=== PATIENT | female | born 1960 | race Caucasian/White ===

== ENCOUNTER 2017-04-05 09:20 | Outpatient (CLI) | payer BC, OTHER ==
[2017-04-05 13:32] LABS: BASOPHILS # (AUTO) 0.1 10^3/uL (0.0-0.1); BASOPHILS % (AUTO) 1.3 %; EOSINOPHILS # (AUTO) 0.1 10^3/uL (0.0-0.7); EOSINOPHILS % (AUTO) 2.2 %; HCT - HEMATOCRIT 36.5 % (37.0-47.0); HGB - HEMOGLOBIN 12.4 g/dL (12.0-16.0); LYMPHOCYTES # (AUTO) 1.3 10^3/uL (1.5-3.5); LYMPHOCYTES % (AUTO) 27.2 %; MEAN CORPUSCULAR HEMOGLOBIN 28.8 pg (27.0-31.0); MEAN CORPUSCULAR VOLUME 84.7 fL (81.0-99.0); MEAN PLATELET VOLUME 8.6 fL (7.9-10.8); MONOCYTES # (AUTO) 0.5 10^3/uL (0.0-1.0); MONOCYTES % (AUTO) 9.6 %; NEUTROPHILS # (AUTO) 2.9 10^3/uL (1.5-6.6); NEUTROPHILS % (AUTO) 59.7 %; NUCLEATED RED BLOOD CELLS AUTO 0.1 /100WBC; RED BLOOD COUNT 4.31 10^6/uL (4.20-5.40); RED CELL DISTRIBUTION WIDTH 13.9 % (12.0-15.0); UNCORRECTED WHITE BLOOD COUNT 4.9 x10^3/uL; WHITE BLOOD COUNT 4.9 x10^3/uL (4.8-10.8)
[2017-04-05 13:50] LABS: ALBUMIN/GLOBULIN RATIO 1.3 (1.0-2.2); BILIRUBIN,TOTAL 0.5 mg/dL (0.2-1.0); CALCIUM 9.1 mg/dL (8.5-10.3); CREATININE 0.6 mg/dL (0.4-1.0); POTASSIUM 3.8 mmol/L (3.5-5.0); TOTAL PROTEIN 6.8 g/dL (6.7-8.2)
== END 2017-04-05 09:21 | disposition home or self-care (01) ==
LOC: LAB.WCP 09:20
PROVIDERS: ATTEND Family Medicine
DX: E03.9 Hypothyroidism, unspecified (principal); I44.0 Atrioventricular block, first degree; R00.2 Palpitations
CPT/HCPCS: 36415; 80053; 84443; 85025

== ENCOUNTER 2017-07-10 07:56 | Day surgery (SDC) | payer OTHER ==
[2017-07-10] MEDS ORDERED: LACTATED RINGERS 1,000 ML IV ONE (08:20)
[2017-07-10] MEDS ORDERED: MIDAZOLAM 2 MG/2 ML VIAL IVP ONE (09:07)
[2017-07-10] MEDS ORDERED: fentaNYL 100 MCG/2 ML VIAL IVP ONE (09:07)
[2017-07-10] MEDS ORDERED: ONDANSETRON 4 MG/2 ML VIAL IVP ONE (09:07)
[2017-07-10 10:36] VITALS: BP 114/61
== END 2017-07-10 07:57 | disposition home or self-care (01) ==
LOC: SDS 07:56
PROVIDERS: ATTEND Surgery
PROC: 0DBH8ZX Excision of Cecum, Via Natural or Artificial Opening Endoscopic, Diagnostic (ICD-10-PCS; principal; 2017-07-10 09:00)
DX: D12.0 Benign neoplasm of cecum (principal); K64.8 Other hemorrhoids; J45.909 Unspecified asthma, uncomplicated
CPT/HCPCS: 45385; J7120

== ENCOUNTER 2017-07-12 10:38 | Outpatient (CLI) | payer OTHER ==
--- NOTE | 2017-07-13 18:43 | Mammography Report ---
DIGITAL SCREENING MAMMOGRAM: 07/12/2017 CLINICAL INDICATION: A 57-year-old with family history of breast cancer, history of benign biopsy fo r screening. COMPARISON: 06/2016, 06/2015, 05/2014, 04/2013, 03/2012, 02/2011, 12/2009. TECHNIQUE: Routine CC and MLO projections were obtained of the breasts as well as bilateral laterall y exaggerated craniocaudal views. FINDINGS: The breasts again demonstrate heterogeneously dense fibroglandular parenchyma bilaterally. A few punctate, typically benign calcifications are present. No suspicious masses, clustered micro calcifications, or regions of architectural distortion are identified. IMPRESSION: BENIGN FINDINGS. RECOMMENDATION: Routine annual screening unless otherwise clinically indicated. BI-RADS category 2, benign findings. STANDARD QUALIFYING STATEMENTS 1. This examination was reviewed with the aid of Computer-Aided Detection (CAD). 2. A negative or benign imaging report should not delay biopsy if clinically suspicious findings are present. Consider surgical consultation if warranted. More than 5% of cancers are not identified by i maging. 3. Dense breasts may obscure an underlying neoplasm. JOB #: [id number] EXT JOB #:[id number]
== END 2017-07-12 10:39 | disposition home or self-care (01) ==
LOC: DI.N 10:38
PROVIDERS: ATTEND Family Medicine
DX: Z12.31 Encounter for screening mammogram for malignant neoplasm of breast (principal); Z80.3 Family history of malignant neoplasm of breast
CPT/HCPCS: 77067

== ENCOUNTER 2018-05-04 08:27 | Outpatient (CLI) | payer BC, OTHER ==
[2018-05-04 13:58] LABS: ALBUMIN 3.8 g/dL (3.2-5.5); ALBUMIN/GLOBULIN RATIO 1.4 (1.0-2.2); BILIRUBIN,TOTAL 0.7 mg/dL (0.2-1.0); CALCIUM 8.9 mg/dL (8.5-10.3); CREATININE 0.7 mg/dL (0.4-1.0); TOTAL PROTEIN 6.6 g/dL (6.7-8.2)
== END 2018-05-04 08:28 | disposition home or self-care (01) ==
LOC: LAB.WCP 08:27
PROVIDERS: ATTEND Family Medicine
DX: E03.9 Hypothyroidism, unspecified (principal)
CPT/HCPCS: 36415; 80053; 84443

== ENCOUNTER 2018-07-12 13:04 | Outpatient (CLI) | payer BC ==
--- NOTE | 2018-07-12 16:18 | DEXA Report ---
Reason: OSTEOPOROSIS NOS Procedure Date: 07/12/2018 Accession Number: [id number] / [id number] Procedure: DEX - Dexa Spine and/or Hip CPT Code: FULL RESULT: EXAM: Dexa Spine and/or Hip DATE: 07/12/2018 1:38 PM CLINICAL HISTORY: OSTEOPOROSIS NOS TECHNIQUE: Dual energy x-ray absorptiometry (DXA) was performed on a [employer] System. Regions measured are the AP Spine, femoral neck, and if needed forearm. COMPARISON: 07/11/2016. In accordance with the International Society for Clinical Densitometry (ISCD) guidelines, data from previous exams may be reanalyzed using current recommendations and techniques. This is done to allow a more accurate basis for comparison with the current study. FINDINGS: The data for the lumbar spine is as follows: BMD (g/cm/cm) T-SCORE Z-SCORE REGION L1 0.675 -3.8 -1.8 L2 0.736 -3.9 -1.9 L3 0.761 -3.7 -1.7 L4 0.732 -3.9 -1.9 TOTAL 0.728 -3.8 -1.8 NOTE: All evaluable vertebrae are used for classification The data for the hip is as follows: BMD (g/cm/cm) T-SCORE Z-SCORE REGION Neck 0.736 -2.2 -0.4 TOTAL 0.700 -2.4 -1.0 DXA RESULTS SUMMARY: Spine SCAN DATE AGE BMD CHANGE VS CHANGE VS PREVIOUS PREVIOUS % 07/12/2018 [age] 0.728 -0.040* -5.2* 07/11/2016 56.1 0.768 * Denotes significant change at the 95% confidence level. Denotes dissimilar scan types or analysis methods. DXA RESULTS SUMMARY: Hip SCAN DATE AGE BMD CHANGE VS CHANGE VS PREVIOUS PREVIOUS % 07/12/2018 60.1 0.700 -0.054* -7.2* 07/11/2016 56.1 0.754 * Denotes significant change at the 95% confidence level. Denotes dissimilar scan types or analysis methods. IMPRESSION: THE WHO CLASSIFICATION BASED ON THE INTERNATIONAL REFERENCE STANDARD IS OSTEOPOROSIS. THE FRACTURE RISK IS HIGH. RECOMMENDATION: Patients with diagnosis of osteoporosis or osteopenia should have regular bone mineral density assessment. For those eligible for Medicare, routine testing is allowed once every 2 years. Testing frequency can be increased for patients who have rapidly progressing disease or for those who are receiving medical therapy to restore bone mass. COMMENT: World Health Organization (WHO) definitions for osteoporosis and osteopenia: NORMAL BMD: T-score at -1.0 or higher, fracture risk is low OSTEOPENIA BMD: T-score between -1.0 and -2.5, fracture risk is increased. OSTEOPOROSIS BMD: T-score at -2.5 or lower, fracture risk is high. National Osteoporosis Foundation recommends: 1. Obtain adequate dietary calcium (at least 1200 mg per day) and vitamin D (400-800 international units per day). 2. Participate, as appropriate, in regular weightbearing and muscle-strengthening exercise. 3. Avoid tobacco use and reduce alcohol and caffeine intake. 4. For more detailed information see the website at www.NOF.org.
== END 2018-07-12 13:05 | disposition home or self-care (01) ==
LOC: DI 13:04
PROVIDERS: ATTEND Family Medicine
DX: M81.0 Age-related osteoporosis without current pathological fracture (principal)
CPT/HCPCS: 77080

== ENCOUNTER 2018-08-10 15:35 | Outpatient (CLI) | payer BC ==
--- NOTE | 2018-08-13 09:25 | Mammography Report ---
Reason: SCREENING MAMMO Procedure Date: 08/10/2018 Accession Number: [id number] / [id number] Procedure: MGN - Screening Mammo Dig Bilat CPT Code: FULL RESULT: EXAM: Screening Mammo Dig Bilat DATE: 08/10/2018 3:50 PM CLINICAL HISTORY: 58-year-old female with history of fibroadenoma removal and biopsy with benign pathology results as well as family history of breast cancer in the mother at age 48 and an aunt at age 50. TECHNIQUE: Bilateral CC, left laterally exaggerated CC, bilateral MLO views were obtained. COMPARISON: 07/12/2017, 07/11/2016, 06/22/2015, 05/30/2014. FINDINGS: The breasts demonstrate heterogeneously dense fibroglandular parenchyma bilaterally. Typically benign vascular calcifications are seen bilaterally. No suspicious masses, clustered microcalcifications, or regions of architectural distortion are identified. IMPRESSION: Benign findings RECOMMENDATION: Routine annual screening unless otherwise clinically indicated. BIRADS CATEGORY 2: Benign findings STANDARD QUALIFYING STATEMENTS: 1. This examination was not reviewed with the aid of Computer-Aided Detection (CAD). 2. A negative or benign imaging report should not delay biopsy if clinically suspicious findings are present. Consider surgical consultation if warrented. More than 5% of cancers are not identified by imaging. 3. Dense breasts may obscure an underlying neoplasm. 4. This examination was reviewed without the aid of 3D breast imaging (tomosynthesis).
== END 2018-08-10 15:36 | disposition home or self-care (01) ==
LOC: DI.N 15:35
DX: Z12.31 Encounter for screening mammogram for malignant neoplasm of breast (principal); Z80.3 Family history of malignant neoplasm of breast
CPT/HCPCS: 77067

== ENCOUNTER 2019-07-03 08:00 | Outpatient (CLI) | payer BC ==
[2019-07-03 11:57] LABS: BASOPHILS # (AUTO) 0.1 10^3/uL (0.0-0.1); BASOPHILS % (AUTO) 0.8 %; EOSINOPHILS # (AUTO) 0.1 10^3/uL (0.0-0.7); EOSINOPHILS % (AUTO) 1.9 %; HGB - HEMOGLOBIN 12.3 g/dL (12.0-16.0); LYMPHOCYTES # (AUTO) 1.6 10^3/uL (1.5-3.5); LYMPHOCYTES % (AUTO) 26.2 %; MEAN CORPUSCULAR HGB CONC 32.4 g/dL (32.0-36.0); MEAN CORPUSCULAR VOLUME 89.6 fL (81.0-99.0); MEAN PLATELET VOLUME 9.9 fL (7.9-10.8); MONOCYTES # (AUTO) 0.4 10^3/uL (0.0-1.0); MONOCYTES % (AUTO) 6.7 %; NEUTROPHILS % (AUTO) 64.2 %; PLT - PLATELET COUNT 306 10^3/uL (130-450); RED BLOOD COUNT 4.24 10^6/uL (4.20-5.40); RED CELL DISTRIBUTION WIDTH 13.2 % (12.0-15.0); WHITE BLOOD COUNT 6.3 x10^3/uL (4.8-10.8)
[2019-07-03 12:35] LABS: ALBUMIN 3.8 g/dL (3.2-5.5); ALBUMIN/GLOBULIN RATIO 1.3 (1.0-2.2); ALKALINE PHOSPHATASE 52 IU/L (42-121); ALT ALANINE AMINOTRANSFERASE 21 IU/L (10-60); AST ASPARTATE AMINOTRANSFERASE 24 IU/L (10-42); BILIRUBIN,TOTAL 0.7 mg/dL (0.2-1.0); BUN - BLOOD UREA NITROGEN 13 mg/dL (6-20); CALCIUM 9.1 mg/dL (8.5-10.3); CARBON DIOXIDE - CO2 27 mmol/L (21-32); CHLORIDE 102 mmol/L (101-111); CHOL/HDL RATIO 2.7 (<4.4); CHOLESTEROL 191 mg/dL; CREATININE 0.6 mg/dL (0.4-1.0); GFR - MDRD 102 (>89); GLUCOSE 84 mg/dL (70-100); HDL CHOLESTEROL 71 mg/dL; LDL CHOLESTEROL,CALCULATED 110 mg/dL; LDL/HDL RATIO 1.5 (<4.4); SODIUM 137 mmol/L (135-145); TOTAL PROTEIN 6.8 g/dL (6.7-8.2); VLDL CHOLESTEROL 10 mg/dL
== END 2019-07-03 23:59 | disposition home or self-care (01) ==
LOC: LAB.WCP 08:00
PROVIDERS: ATTEND Family Medicine
DX: E03.9 Hypothyroidism, unspecified (principal); R00.2 Palpitations; K58.9 Irritable bowel syndrome, unspecified; K21.9 Gastro-esophageal reflux disease without esophagitis
CPT/HCPCS: 36415; 80053; 80061; 83721; 84443; 85025

== ENCOUNTER 2019-07-10 08:00 | Outpatient (CLI) | payer BC | END 2019-07-10 23:59 | disposition home or self-care (01) | LOC: LAB.WCP 08:00 | PROVIDERS: ATTEND Family Medicine | DX: M81.0 Age-related osteoporosis without current pathological fracture (principal); Z13.9 Encounter for screening, unspecified | CPT/HCPCS: 36415; 82306; 83735; 86765 ==

== ENCOUNTER 2019-07-19 15:55 | Outpatient (CLI) | payer BC ==
--- NOTE | 2019-07-22 14:20 | Mammography Report ---
Reason: ROUTINE MAMMO Procedure Date: 07/19/2019 Accession Number: [id number] / [id number] Procedure: MGN - Screening Mammo Dig Bilat CPT Code: FULL RESULT: EXAM: Screening Mammo Dig Bilat DATE: 07/19/2019 4:15 PM CLINICAL HISTORY: Routine screening TECHNIQUE: (B) - Bilateral CC and MLO views were obtained. COMPARISON: 08/10/2018, 07/12/2017, 07/11/2016 and 06/22/2015 PARENCHYMAL PATTERN: (D) - The breasts demonstrate heterogeneously dense fibroglandular parenchyma bilaterally. FINDINGS: No significant interval change. There are no suspicious masses, calcifications, or areas of distortion. Benign vascular calcifications as before IMPRESSION: Negative examination. BI-RADS category 1. RECOMMENDATION: (ANNUAL) - Recommend routine annual screening mammography. BI-RADS CATEGORY: (1) - Negative. STANDARD QUALIFYING STATEMENTS: 1. This examination was not reviewed with the aid of Computer-Aided Detection (CAD). 2. A negative or benign imaging report should not preclude biopsy if clinically suspicious findings are present. 3. Dense breasts may obscure an underlying neoplasm. 4. This examination was reviewed without the aid of 3D breast imaging (tomosynthesis).
== END 2019-07-19 15:56 | disposition home or self-care (01) ==
LOC: DI.N 15:55
PROVIDERS: ATTEND Family Medicine
DX: Z12.31 Encounter for screening mammogram for malignant neoplasm of breast (principal)
CPT/HCPCS: 77067

== ENCOUNTER 2020-07-13 15:01 | Outpatient (CLI) | payer OTHER | END 2020-07-13 23:59 | disposition home or self-care (01) | LOC: LAB.WCP 15:01 | PROVIDERS: ATTEND Nurse Practitioner Family | DX: Z00.00 Encounter for general adult medical examination without abnormal findings (principal) | CPT/HCPCS: 36415; 80053; 80061; 84443; 85025 ==

== ENCOUNTER → 2020-08-12 | Outpatient (CLI) | payer OTHER ==
--- NOTE | 2020-08-12 15:00 | DEXA Report ---
REVISED: THIS REPORT WAS ORIGINALLY SIGNED ON 08/12/2020 @ 14:58. THE REPORT WAS MOVED TO THE CORRECT ACCOUNT ON 09/23/2020. PROCEDURE: Dexa Spine and/or Hip INDICATIONS: OSTEOPOROSIS TECHNIQUE: Dual energy x-ray absorptiometry (DXA) was performed on a [employer] System. Regions measured are the AP Spine, femoral neck, and if needed forearm. COMPARISON: Prior DEXA bone densitometry study 07/12/2018, same methodology, utilized for review. FINDINGS: Lumbar Spine: Bone Mineral Density 0.826 g/cm/cm,T score -2.9, osteoporosis, and this represents a statistically significant improvement in overall lumbosacral bone mineral density of 13.5% from 07/12/2018. Left Hip: Bone Mineral Density 0.726 g/cm/cm,T score -2.2, osteopenia Left Femoral Neck: Bone Mineral Density 0.754 g/cm/cm, T score -2.0, osteopenia Impression: Osteoporosis remains present at the lumbosacral spine but there has been a statistically significant improvement in overall LS-spine bone mineral density of 13.5% with reference to the comparison examination from 2 years ago. Osteopenia is present at the left hip region and the left femoral neck. Patients with diagnosis of osteoporosis or osteopenia should have regular bone mineral density assessment. For those eligible for Medicare, routine testing is allowed once every 2 years. Testing frequency can be increased for patients who have rapidly progressing disease or for those who are receiving medical therapy to restore bone mass. Reviewed by: Guanako Marie MD on 08/12/2020 2:58 PM PDT Approved by: Guanako Marie MD on 08/12/2020 2:58 PM PDT Station ID: [id number]
== END ==
LOC: DI 11:00
PROVIDERS: ATTEND Internal Medicine
DX: M81.0 Age-related osteoporosis without current pathological fracture (principal)
CPT/HCPCS: 77080

== ENCOUNTER 2020-08-13 11:08 | Outpatient (CLI) | payer OTHER ==
--- NOTE | 2020-08-14 08:31 | Mammography Report ---
BILATERAL DIGITAL SCREENING MAMMOGRAM 3D/2D: 08/13/2020 CLINICAL: Family history of breast cancer. Routine screening. Comparison is made to exams dated: 07/19/2019 mammogram, 08/10/2018 mammogram, 07/12/2017 mammogram, and 07/11/2016 mammogram - [facility]. The tissue of both breasts is heterogeneously d ense. This may lower the sensitivity of mammography. No significant masses, calcifications, or other findings are seen in either breast. There has been no significant interval change. IMPRESSION: NEGATIVE There is no mammographic evidence of malignancy. A 1 year screening mammogram is recommended. This exam was interpreted at Station ID: [id number]. NOTE: For mammograms, a report in lay terms will be sent to the patient. Approximately 15% of breast malignancies will not be visualized mammographically. In the management of a palpable breast mass, a negative mammogram must not discourage biopsy of a clinically suspicious lesion. Electronically Signed By: Perry dorantes/ajay:08/13/2020 16:38:52 ACR BI-RADS Category 1: Negative 3341F PARENCHYMAL PATTERN: (D) - The breast(s) demonstrate(s) heterogeneously dense fibroglandular fito lozoya. BI-RADS CATEGORY: (1) - 1 RECOMMENDATION: (ANNUAL) - Recommend routine annual screening mammography. [id number] 1 year screening LATERALITY: (B)
== END 2020-08-13 11:09 | disposition home or self-care (01) ==
LOC: DI.N 11:08
DX: Z12.31 Encounter for screening mammogram for malignant neoplasm of breast (principal); Z80.3 Family history of malignant neoplasm of breast
CPT/HCPCS: 77063; 77067

== ENCOUNTER 2020-10-15 11:00 | Day surgery (SDC) | payer OTHER ==
[2020-10-15] MEDS ORDERED: LACTATED RINGERS 1,000 ML IV ONE ×2 (11:42→13:33)
[2020-10-15] MEDS ORDERED: ONDANSETRON 4 MG/2 ML VIAL ONE (11:55)
[2020-10-15] MEDS ORDERED: fentaNYL 250 MCG/5 ML VIAL IVP ONE (12:58)
[2020-10-15] MEDS ORDERED: MIDAZOLAM 2 MG/2 ML VIAL IVP ONE (12:58)
[2020-10-15 14:07] VITALS: BP 109/58
== END 2020-10-15 11:01 | disposition home or self-care (01) ==
LOC: SDS 11:00
PROVIDERS: ATTEND Surgery
DX: Z12.11 Encounter for screening for malignant neoplasm of colon (principal); K57.30 Diverticulosis of large intestine without perforation or abscess without bleeding; K64.4 Residual hemorrhoidal skin tags; Z86.010 Personal history of colon polyps
CPT/HCPCS: 45378; J3010; J7120

== ENCOUNTER 2024-05-27 21:52 | Emergency (ER) | payer MEDICARE, OTHER ==
[2024-05-27 23:45] LABS: BASOPHILS # (AUTO) 0.1 10^3/uL (0.0-0.1); BASOPHILS % (AUTO) 0.7 %; EOSINOPHILS # (AUTO) 0.2 10^3/uL (0.0-0.7); EOSINOPHILS % (AUTO) 2.2 %; HGB - HEMOGLOBIN 11.6 g/dL (12.0-16.0); LYMPHOCYTES # (AUTO) 1.8 10^3/uL (1.5-3.5); LYMPHOCYTES % (AUTO) 24.7 %; MEAN CORPUSCULAR HEMOGLOBIN 28.3 pg (27.0-31.0); MEAN CORPUSCULAR HGB CONC 31.4 g/dL (32.0-36.0); MEAN CORPUSCULAR VOLUME 90.2 fL (81.0-99.0); MEAN PLATELET VOLUME 9.8 fL (7.9-10.8); MONOCYTES # (AUTO) 0.6 10^3/uL (0.0-1.0); MONOCYTES % (AUTO) 8.4 %; NEUTROPHILS # (AUTO) 4.7 10^3/uL (1.5-6.6); NEUTROPHILS % (AUTO) 63.7 %; PLT - PLATELET COUNT 330 10^3/uL (130-450); RED CELL DISTRIBUTION WIDTH 12.7 % (12.0-15.0); WHITE BLOOD COUNT 7.3 x10^3/uL (4.8-10.8)
[2024-05-27 23:49] LABS: ALBUMIN 4.2 g/dL (3.2-5.5); ALBUMIN/GLOBULIN RATIO 1.4 (1.0-2.2); ALKALINE PHOSPHATASE 43 IU/L (42-121); ALT ALANINE AMINOTRANSFERASE 15 IU/L (10-60); AST ASPARTATE AMINOTRANSFERASE 19 IU/L (10-42); BILIRUBIN,TOTAL 0.3 mg/dL (0.2-1.0); BUN - BLOOD UREA NITROGEN 17 mg/dL (6-20); CALCIUM 9.9 mg/dL (8.5-10.3); CARBON DIOXIDE - CO2 29 mmol/L (21-32); CHLORIDE 106 mmol/L (101-111); CREATININE 0.8 mg/dL (0.6-1.3); GFR - MDRD 72 (>89); GLUCOSE 77 mg/dL (74-104); LIPASE 33 U/L (11-82); POTASSIUM 4.2 mmol/L (3.5-4.5); SODIUM 139 mmol/L (135-145); TOTAL PROTEIN 7.1 g/dL (6.4-8.9)
[2024-05-27 23:55] LABS: TROPONIN I HIGH SENSITIVITY < 2.3 ng/L (2.3-14.8)
--- NOTE | 2024-05-28 01:13 | XRAY Report ---
PROCEDURE: Chest 1V INDICATIONS: Chest pain TECHNIQUE: One view of the chest was acquired. COMPARISON: CT chest 04/30/2013 FINDINGS: Surgical changes and devices: None. Lungs and pleura: No pleural effusions or pneumothorax. Lungs are clear. Mediastinum: Mediastinal contours appear normal. Heart size is normal. Bones and chest wall: No suspicious bony lesions. Overlying soft tissues appear unremarkable. IMPRESSION: No acute cardiopulmonary process. Reviewed by: Mary Ann Sheikh MD on 05/28/2024 1:12 AM PDT Approved by: Mary Ann Sheikh MD on 05/28/2024 1:12 AM PDT Station ID: [id number]
--- NOTE | 2024-05-28 02:18 | ED Physician Documentation ---
History of Present Illness - Stated complaint Stated Complaint: HEART PALP - Chief complaint Chief Complaint: Cardiac - Additonal information Additional information: 64-year-old female presents to the emergency department chief complaint of heart palpitations. Reports frequent heart palpitations x 2 weeks. Reports was sick with the SARS COVID virus a few weeks ago as well. Has traveled here from [place] to visit with family. Denies chest pain, hemoptysis, shortness of breath, fever, syncope or near-syncope COVID PE, abdominal pain, nausea, vomiting, increased caffeine intake or stressors. Review of Systems Constitutional: denies: Fever Eyes: denies: Loss of vision Ears: denies: Loss of hearing Nose: denies: Rhinorrhea / runny nose Throat: denies: Dental pain / toothache Cardiac: reports: Palpitations. 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: Hysterectomy HEENT: Tonsil/Adenoidectomy, Other - Present Medications Home Medications: Ambulatory Orders Medication Instructions Recorded Confirmed Albuterol Sulfate [Proair Hfa] 180 mcg IH Q4HR PRN 03/29/13 05/29/15 Cholecalciferol (Vitamin D3) 2,000 unit PO DAILY 03/29/13 05/29/15 [Vitamin D-3] Fluticasone Propionate 50 mcg NS DAILY 03/29/13 05/29/15 Levothyroxine [Synthroid] 50 mcg PO DAILY 03/29/13 05/29/15 [place]-3/Dha/Epa/Fish Oil [Eql 1 each PO DAILY 03/29/13 05/29/15 [place] 3 Fish Oil Softgel] Amitriptyline [Elavil] 10 mg PO DAILY 05/29/15 05/29/15 Cetirizine HCl [Zyrtec] 10 mg PO DAILY 05/29/15 05/29/15 Famotidine [Pepcid AC] 20 mg PO DAILY 05/29/15 10/15/20 Denosumab [Prolia] 05/28/24 05/28/24 - Allergies Allergies/Adverse Reactions: Allergies Allergy/AdvReac Type Severity Reaction Status Date / Time house dust Allergy Severe Respiratory Verified 05/28/24 01:23 Sulfa (Sulfonamide Allergy Intermediate Itching Verified 05/28/24 01:23 Antibiotics) - Social History Does the pt smoke?: No Smoking Status: Never smoker Does the pt drink ETOH?: No Does the pt have substance abuse?: No - Immunizations Immunizations are current?: Yes - POLST Patient has POLST: No PD ED PE NORMAL - Vitals Vital signs reviewed: Yes - General General: Alert and oriented X 3, No acute distress, Well developed/nourished - HEENT HEENT: Atraumatic, PERRL, EOMI, Ears normal, Moist mucous membranes, Pharynx benign - Neck Neck: Supple, no meningeal sign, No bony TTP, No adenopathy, Thyroid normal, No JVD - Cardiac Cardiac: RRR, No murmur, No gallop, Strong equal pulses - Respiratory Respiratory: No respiratory distress, Clear bilaterally - Abdomen Abdomen: Normal bowel sounds, Non tender - Female Female : Deferred - Rectal Rectal: Deferred - Back Back: No CVA TTP - Derm Derm: Normal color - Extremities Extremities: No deformity - Neuro Neuro: Alert and oriented X 3, inflatable buildings laminator 2-12 intact, No motor deficit, Normal speech Results - Vitals Vitals: Vital Signs - 24 hr 05/27/24 05/28/24 05/28/24 21:55 00:50 01:20 Temperature 36.5 C 36.8 C Heart Rate 74 65 70 Respiratory 16 16 20 Rate Blood Pressure 150/72 H 138/74 H 137/70 H O2 Saturation 100 100 100 05/28/24 02:27 Temperature Heart Rate 62 Respiratory 22 Rate Blood Pressure 127/70 O2 Saturation 99 Oxygen O2 Source Room air - EKG (time done) 2200 EKG releavant findings:: EKG personally interpreted by author of this note. Relevant findings are: Sinus rhythm with rate 73 bpm. Normal axis. Parable prolonged at 230 ms. Normal QRS and QTc intervals. No ST segment elevations or T wave inversions. - Labs Labs: Laboratory Tests 05/27/24 05/27/24 23:29 23:29 WBC 7.3 RBC 4.10 L Hgb 11.6 L Hct 37.0 MCV 90.2 MCH 28.3 MCHC 31.4 L RDW 12.7 Plt Count 330 MPV 9.8 Neut # (Auto) 4.7 Lymph # (Auto) 1.8 [place] # (Auto) 0.6 Eos # (Auto) 0.2 Baso # (Auto) 0.1 Absolute Nucleated RBC 0.00 Nucleated RBC % 0.0 Sodium 139 Potassium 4.2 Chloride 106 Carbon Dioxide 29 Anion Gap 4.0 L BUN 17 Creatinine 0.8 Estimated GFR (MDRD) 72 L Glucose 77 Calcium 9.9 Total Bilirubin 0.3 AST 19 ALT 15 Alkaline Phosphatase 43 Troponin I High Sens < 2.3 L Total Protein 7.1 Albumin 4.2 Globulin 2.9 Albumin/Globulin Ratio 1.4 Lipase 33 PD Medical Decision Making - ED course ED course: 64-year-old female presents with chief complaint palpitations x 2 weeks. Denies chest pain, shortness of breath, hemoptysis, feelings of syncope or near syncope or other red flags. Reports that she has had similar palpitations for 30 years but that they have been worse over the course of the last 2 weeks. Does report that she was using cough and cold medication including Sudafed up until a week ago to help with a COVID infection. Reports that she feels as though the COVID infection has resolved. Her EKG demonstrates a first-degree block but no other indications acute cardiac ischemia or dysrhythmia. Her labs are pristine. Her chest x-ray is nonacute. Discussed the nature of premature ventricular complexes as well as the importance of avoiding stimulants such as caffeine, continuing her daily multivitamin, drinking plenty of fluids and fo llowing up with her primary care doctor. She verbalized understanding of this. Clear return precautions given. Departure - Departure Disposition: 01 Home, Self Care Clinical Impression: Heart palpitations Comments: Thank you for allowing us to care for you today at [facility]. Today in the emergency department you were evaluated for any possible dangerous or life-threatening medical emergency. The testing performed in the emergency department today including your EKG, blood work and chest x-ray are reassuring. It is important that you abstain from any caffeine or other stimulants. Please drink plenty fluids and get plenty of rest. I do recommend following up with your primary care doctor soon as possible concerning your ER evaluation. If it anytime you have new or worsening symptoms such as worsening palpitations, chest pain, feelings of syncope or near syncope, shortness of breath please return to the emergency department immediately for reevaluation. Forms: PCP List Discharge Date/Time: 05/28/24 02:33
[2024-05-28 02:37] VITALS: BP 127/70; O2SAT 99
== END 2024-05-28 02:33 | disposition home or self-care (01) ==
LOC: ED 21:52
DX: J45.909 Unspecified asthma, uncomplicated (principal); E03.9 Hypothyroidism, unspecified; Z86.010 Personal history of colon polyps; Z79.899 Other long term (current) drug therapy
CPT/HCPCS: 36415; 80053; 83690; 84484; 85025; 93005; 99284